=== PATIENT | female | born 1985 | race Two or more races ===

== ENCOUNTER 2025-02-18 10:45 | Emergency (ER) | payer OTHER ==
[~2025-02-18] VITALS: Ht 165.1 cm; Wt 52.0 kg
[2025-02-18 10:48] VITALS: TEMP 36.6; O2SAT 98
[2025-02-18] MEDS: DEXAMETHASONE 10 MG/ML VIAL IV ONE (11:17)
[2025-02-18] MEDS: KETOROLAC 30MG/ML VIAL IM ONE (11:17)
[2025-02-18] MEDS ORDERED: CYCL10TA21 MT (12:49)
[2025-02-18 13:04] VITALS: BP 105/64; PULSE 64; RESP 18; O2SAT 100
[2025-02-18] MEDS: CYCLOBENZAPRINE 10MG TABLET PO ONE (13:05)
[2025-02-19] MEDS ORDERED: LIDOCAINE 5% PATCH TOP SCH (09:00)
== END 2025-02-18 13:11 | disposition home or self-care (01) ==
LOC: ER 10:57
DX: M54.50 Low back pain, unspecified (principal); M79.18 Myalgia, other site; M54.2 Cervicalgia; V43.52XA Car driver injured in collision with other type car in traffic accident, initial encounter; Y93.89 Activity, other specified; Y92.410 Unspecified street and highway as the place of occurrence of the external cause; Y99.8 Other external cause status
CPT/HCPCS: 99284; 96374; 81025; 96372; J1885; J1100